=== PATIENT | female | born 1980 | race Caucasian/White ===

== ENCOUNTER 2022-07-27 20:03 | Emergency (ER) | payer SELFPAY ==
[~2022-07-27] VITALS: Ht 162.6 cm; Wt 90.7 kg
--- NOTE | 2022-07-27 20:03 | NUR ---
PT ALEXYS HAGAN, PREBOOK. TAKEN TO ER CHAIR
[2022-07-27 20:46] VITALS: BP 109/59
[2022-07-27 21:23] VITALS: BP 109/59
--- NOTE | 2022-07-27 21:23 | NUR ---
PATIENT BIB [place] [employer]. PATIENT EXAMINED BY DR. PA. PATIENT MEDICALLY CLEARED AND RELEASED IN CUSTODY IN STABLE CONDITION. ORIGINAL PRE-BOOK FORM GIVEN TO OFFICER DARLYN.
== END 2022-07-27 21:23 ==
LOC: MED 20:03
DX: I10 Essential (primary) hypertension; V49.88XA Car occupant (driver) (passenger) injured in other specified transport accidents, initial encounter; Y93.89 Activity, other specified; Y92.89 Other specified places as the place of occurrence of the external cause; Y99.8 Other external cause status
CPT/HCPCS: 99283